=== PATIENT | female | born 1960 | race Caucasian/White ===

== ENCOUNTER 2024-12-16 13:12 | Outpatient (CLI) | payer MEDICAID, SELFPAY | END 2024-12-16 13:13 | disposition home or self-care (01) | PROVIDERS: PCP Internal Medicine; Visit Provider Internal Medicine | DX: R00.2 Palpitations (principal); Z13.6 Encounter for screening for cardiovascular disorders | CPT/HCPCS: 80053; 80061; 84443 ==